=== PATIENT | male | born 1965 ===

== ENCOUNTER 2017-02-10 15:51 | Observation (INO) | payer OTHER ==
[2017-02-10 15:57] VITALS: RESP 16; O2SAT 96
--- NOTE | 2017-02-10 16:28 | ED PDOC ---
HPI: Psych/Substance Abuse Time Seen by Provider: 02/10/17 16:00 Chief Complaint (Nursing): Alcohol Ingestion Chief Complaint (Provider): Alcohol Ingestion ED Caveat: Intoxicated History Per: Patient History/Exam Limitations: intoxication Onset/Duration Of Symptoms: Days (x 1) Current Symptoms Are (Timing): Still Present Modifying Factor(s): Alcohol Additional History Per: EMS Additional Complaint(s): Patient is a 38 y/o male brought to the ED via EMS. He was found lying down on the street. Admits to drinking beer today. Offers no complaints at this time. PMD: Non H provider Past Medical History Reviewed: Historical Data, Nursing Documentation, Vital Signs, Unable To Obtain Vital Signs: Last Vital Signs Temp 98.5 F 02/10/17 15:54 Pulse 82 02/10/17 15:54 Resp 16 02/10/17 15:54 BP 112/76 02/10/17 15:54 Pulse Ox 96 02/10/17 15:54 - Family History Family History: States: No Known Family Hx - Allergies Allergies/Adverse Reactions: Allergies Allergy/AdvReac Type Severity Reaction Status Date / Time Unobtainable Allergy Verified 02/10/17 15:53 Review of Systems Review Of Systems: ROS cannot be obtained secondary to pt's inabilty to answer questions. Physical Exam - Reviewed Nursing Documentation Reviewed: Yes Vital Signs Reviewed: Yes - Physical Exam Appears: Positive for: Well (with alcohol on breath), Non-toxic, No Acute Distress Head Exam: Positive for: ATRAUMATIC, NORMAL INSPECTION, NORMOCEPHALIC Skin: Positive for: Normal Color, Warm, Dry. Negative for: Rash Eye Exam: Positive for: EOMI, Normal appearance, PERRL Neck: Positive for: Normal, Painless ROM Cardiovascular/Chest: Positive for: Regular Rate, Rhythm. Negative for: Murmur Respiratory: Positive for: Normal Breath Sounds. Negative for: Accessory Muscle Use, Respiratory Distress Pulses-Radial (L): 2+ Pulses-Radial (R): 2+ Gastrointestinal/Abdominal: Positive for: Normal Exam, Soft. Negative for: Tenderness Extremity: Positive for: Normal ROM. Negative for: Pedal Edema, Deformity Neurologic/Psych: Positive for: Alert (and awake), Other (slurred speech) - Laboratory Results Result Diagrams: 02/10/17 17:04 02/10/17 17:04 - ECG O2 Sat by Pulse Oximetry: 96 (RA) Pulse Ox Interpretation: Normal Medical Decision Making Medical Decision Making: Time: 16:17 Initial Plan: --Ordered labs --Patient admitted to ED-OBS for ETOH intoxication Scribe Attestation: Documented by Layne Franco, acting as a scribe for Jens Rae PA-C Provider Scribe Attestation: All medical record entries made by the Scribe were at my direction and personally dictated by me. I have reviewed the chart and agree that the record accurately reflects my personal performance of the history, physical exam, medical decision making, and the department course for this patient. I have also personally directed, reviewed, and agree with the discharge instructions and disposition. ED OBSERVATION Date of observation admission: 02/10/17 Time of observation admission: 16:17 - Observation admission statement Patient is being placed in observation because:: ETOH intoxication - Goals of Observation Goals of observation are:: Clinical sobriety - Progress Note Progress Note: 02/10/17 Time: 16:17 --Patient is resting. Time: 17:30 --Patient continues to rest. Time: 19:00 --Patient is resting. Time: 20:30 --Patient continues to rest comfortably. Time: 22:00 --Patient resting comfortably. Time: 00:00 Sleeping comfortable. Easily arousable. Disposition - Clinical Impression Clinical Impression: Alcohol intoxication - Patient ED Disposition Is Patient to be Admitted: Transfer of Care (Signed out to Jhoan ROBB pending sobriety) - Disposition Disposition Time: 00:00 Condition: STABLE
[2017-02-10 17:12] LABS: BASO # 0.1 K/uL (0.0-0.2); BASO % 2.8 % (0.0-2.0); EOS # 0.1 K/uL (0.0-0.7); EOS % 3.5 % (0.0-4.0); HEMATOCRIT 40.9 % (35.0-51.0); LYMPH # 1.8 K/uL (1.0-4.3); LYMPH % 51.4 % (20.0-40.0); MEAN CELL VOLUME 100.9 fl (80.0-94.0); MEAN CORPUSCULAR HEMOGLOBIN 33.8 pg (27.0-31.0); MEAN CORPUSCULAR HGB CONC 33.5 g/dL (33.0-37.0); MEAN PLATELET VOLUME 7.4 fl (7.2-11.7); MONO # 0.4 K/uL (0.0-0.8); MONO % 11.2 % (0.0-10.0); NEUT # 1.1 K/uL (1.8-7.0); NEUT % 31.1 % (50.0-75.0); RED CELL DISTRIBUTION WIDTH 14.3 % (11.5-14.5); WHITE BLOOD COUNT 3.5 K/uL (4.8-10.8)
[2017-02-10 17:36] LABS: ALB/GLOB RATIO 1.2 (1.0-2.1); ALKALINE PHOSPHATASE 86 U/L (38-126); ALT/SGPT 91 U/L (21-72); AST/SGOT 126 U/L (17-59); BILIRUBIN,TOTAL 0.4 mg/dl (0.2-1.3); BLOOD UREA NITROGEN 4 mg/dl (9-20); CALCIUM 8.9 mg/dL (8.4-10.2); CARBON DIOXIDE 22 mmol/L (22-30); CHLORIDE 106 mmol/L (98-107); GFR AFRICAN-AMERICAN > 60; GLUCOSE,RANDOM 84 mg/dL (75-110); POTASSIUM 3.6 MMOL/L (3.6-5.0); SODIUM 144 mmol/l (132-148); TOTAL PROTEIN 8.2 G/DL (6.3-8.2)
[2017-02-10 17:58] LABS: ALCOHOL SERUM 447 mg/dl (0-10)
--- NOTE | 2017-02-11 00:16 | ED PDOC ---
- Laboratory Results Result Diagrams: 02/10/17 17:04 02/10/17 17:04 - ECG O2 Sat by Pulse Oximetry: 96 (RA) Pulse Ox Interpretation: Normal Medical Decision Making Medical Decision Making: Case was signed out to card writer hand from ISHA Rae pending sobriety. 2:20 am: patient is awake and alert, has steady gait, tolerated water and juice in ED. He would like to go home. Patient is stable for discharge. Disposition - Clinical Impression Clinical Impression: Alcohol intoxication - POA Present On Arrival: None - Disposition Disposition: Routine/Home Disposition Time: 02:23 Condition: STABLE
[2017-02-11 00:33] VITALS: PULSE 78; TEMP 97.8
[2017-02-11 00:34] VITALS: BP 120/78
== END 2017-02-11 02:25 | disposition home or self-care (01) ==
LOC: H.ER 15:51 → H.EROBSV 16:17
PROVIDERS: ADMIT Emergency Medicine; ATTEND Emergency Medicine
DX: F10.129 Alcohol abuse with intoxication, unspecified (principal)
CPT/HCPCS: 80053; 80320; 80324; 80345; 80346; 80349; 80353; 80358; 80361; 83992; 85025; 99283; G0378